=== PATIENT | female | born 1980 | race African-American/Black ===

== ENCOUNTER 2025-05-20 16:54 | Emergency (ER) | payer BC ==
[~2025-05-20] VITALS: Ht 165.1 cm; Wt 95.0 kg
[2025-05-20 16:58] VITALS: O2SAT 99
[2025-05-20 17:08] VITALS: TEMP 36.9
[2025-05-20] MEDS: SODIUM CHLORIDE 0.9% 1,000 ML IV ONE (17:33)
[2025-05-20 17:42] LABS: BASOPHILS % 0.8 % (0.0-2.0); EOSINOPHILS % 1.0 % (0.0-5.0); HEMATOCRIT. 31.0 % (36.0-48.0); HEMOGLOBIN. 10.1 g/dL (12.0-16.0); LYMPHOCYTES % 38.6 % (20.0-50.0); MEAN PLATELET VOLUME 8.7 fl (7.4-10.4); MONOCYTES % 5.1 % (2.0-8.0); NEUTROPHILS % 54.5 % (40.0-76.0); PLATELET 241 x1000/uL (130-400); RED BLOOD CELL COUNT 3.65 mill/uL (4.2-5.4); RED CELL DISTRIBUTION WIDTH 15.2 % (11.6-14.6)
[2025-05-20] MEDS: KETOROLAC 30MG/ML VIAL IV ONE (17:50)
[2025-05-20 17:56] LABS: CREATININE 1.5 mg/dL (0.6-1.0)
[2025-05-20 17:57] LABS: HCG SCREEN NEGATIVE; TROPONIN I HIGH SENSITIVITY < 4 ng/L (3.0-34); UREA NITROGEN BLOOD 12 mg/dL (9-23)
[2025-05-20 17:58] LABS: ASPARTATE AMINOTRANSFERASE 14 IU/L (<34); BILIRUBIN DIRECT 0.2 mg/dL (<=3.0)
[2025-05-20 17:59] LABS: BILIRUBIN TOTAL 0.5 mg/dL (0.1-1.0); PROTEIN TOTAL 7.6 g/dL (6.0-8.3)
[2025-05-20] MEDS: POTASSIUM CHLORIDE 20MEQ/PACKET PO ONE (18:38)
[2025-05-20 20:10] VITALS: BP 151/88; PULSE 78; RESP 19; O2SAT 98
== END 2025-05-20 20:29 | disposition home or self-care (01) ==
LOC: ER 16:54
DX: S93.602A Unspecified sprain of left foot, initial encounter (principal); S93.601A Unspecified sprain of right foot, initial encounter; R55 Syncope and collapse; N17.9 Acute kidney failure, unspecified; E87.6 Hypokalemia; I10 Essential (primary) hypertension; X50.1XXA Overexertion from prolonged static or awkward postures, initial encounter; Y93.01 Activity, walking, marching and hiking; Y92.410 Unspecified street and highway as the place of occurrence of the external cause; Y99.8 Other external cause status; Z79.899 Other long term (current) drug therapy
CPT/HCPCS: 99284; 96374; 71045; 96361; 80076; 80048; 84703; 83880; 83735; 85025; 84484; 36415; 73630; J1885; J7030